=== PATIENT | male | born 1945 | race Caucasian/White ===

== ENCOUNTER 2018-11-10 19:38 | Inpatient (IN) | payer MEDICARE ==
[2018-11-10] MEDS ORDERED: morphine 2 MG INJ IV (22:00)
[2018-11-10] MEDS ORDERED: CYCLOBENZAPRINE 10 MG TAB PO (22:00)
[2018-11-10] MEDS ORDERED: ONDANSETRON 4 MG INJ IV (22:00)
[2018-11-10] MEDS ORDERED: GLUCOSE GEL 15 GRAM TUBE BUCCAL (22:00)
[2018-11-10] MEDS ORDERED: SENNA TAB PO (22:00)
[2018-11-10] MEDS ORDERED: GLUCOSE GEL 15 GRAM TUBE PO ×2 (22:00)
[2018-11-10] MEDS ORDERED: DEXTROSE 50% 50 ML SYRINGE IV ×2 (22:00)
[2018-11-10] MEDS ORDERED: POLYETHYLENE GLYCOL 17 GM PACKET PO (22:00)
[2018-11-10] MEDS ORDERED: MAGNESIUM OXIDE 400 MG TAB PO (22:00)
[2018-11-10] MEDS ORDERED: GLUCAGON 1 MG INJ IM (22:00)
[2018-11-10] MEDS ORDERED: DOCUSATE SODIUM 100 MG CAP PO (22:00)
[2018-11-10 22:26] LABS: ADD UMIC YES; UR ASCORBIC ACID NEGATIVE (NEGATIVE); UR BILIRUBIN (Dip) NEGATIVE (NEGATIVE); UR BLOOD (Dip) NEGATIVE (NEGATIVE); UR CLARITY CLEAR (CLEAR); UR COLOR YELLOW (YELLOW); UR GLUCOSE (Dip) 2+ mg/dL (NEGATIVE); UR KETONES (Dip) NEGATIVE (NEGATIVE); UR LEUKOCYTE ESTERASE (Dip) NEGATIVE Leu/ul (NEGATIVE); UR NITRITE (Dip) NEGATIVE (NEGATIVE); UR RBC 0 /HPF (0-5); UR SPECIFIC GRAVITY (Dip) 1.015 (1.003-1.030); UR TOTAL PROTEIN (Dip) 2+ mg/dl (NEGATIVE); UR UROBILINOGEN (Dip) NEGATIVE (NEGATIVE); UR WBC 0 /HPF (0-5)
[2018-11-10] MEDS: DOCUSATE SODIUM 100 MG CAP PO (22:52)
[2018-11-10] MEDS: PREGABALIN 75 MG CAP PO (22:52)
[2018-11-10] MEDS: SENNA TAB PO (22:52)
[2018-11-10] MEDS: TAMSULOSIN (SR) 0.4 MG CAP PO (22:53)
[2018-11-10] MEDS: oxyCODONE (CR) 15 MG TAB [oxyCONTIN] PO (22:53)
[2018-11-10] MEDS: CYCLOBENZAPRINE 10 MG TAB PO (22:55)
[2018-11-10] MEDS: METOPROLOL 25 MG TAB PO (22:56)
[2018-11-10] MEDS: AMLODIPINE 5 MG TAB PO (22:56)
[2018-11-10] MEDS: HEPARIN 5,000 UNIT/1 ML VIAL SC (23:03)
[2018-11-10] MEDS: Insulin NOVOLOG SS MILD Algorithm (SS with meals and bedtime) SC (23:04)
[2018-11-10] MEDS: INSULIN GLARGINE [LANTus] (100 UNITS/ML) SYG SC (23:04)
[2018-11-11] MEDS: ACCUCHECK AT 2AM (Patients on SS coverage) XX (02:00)
[2018-11-11] MEDS: PANTOPRAZOLE (EC) 40 MG TAB PO (06:24)
[2018-11-11 06:43] LABS: ADD MAN DIFF? NO
[2018-11-11 06:47] LABS: WHITE BLOOD COUNT 7.8 10^3/ul (4.8-10.8)
[2018-11-11 06:47] LABS: BASOPHILS % 0.5 % (0.0-2.0); EOSINOPHILS # 0.6 10^3/ul (0.0-0.5); EOSINOPHILS % 7.2 % (0.0-7.0); HEMATOCRIT 31.4 % (42.0-52.0); HEMOGLOBIN 10.4 g/dl (14.0-18.0); LYMPHOCYTES # 1.9 10^3/ul (0.8-2.9); LYMPHOCYTES % 24.6 % (15.0-51.0); MEAN CORPUSCULAR HEMOGLOBIN 30.1 pg (29.0-33.0); MEAN CORPUSCULAR HGB CONC 33.1 g/dl (32.0-37.0); MEAN PLATELET VOLUME 10.9 fl (7.4-10.4); MONOCYTE # 0.8 10^3/ul (0.3-0.9); MONOCYTES % 10.1 % (0.0-11.0); NEUTROPHIL # 4.5 10^3/ul (1.6-7.5); NEUTROPHILS % 57.3 % (39.0-77.0); PLATELET COUNT 160 10^3/UL (140-415); RED BLOOD COUNT 3.45 10^6/ul (4.70-6.10); RED CELL DISTRIBUTION WIDTH 12.5 % (11.5-14.5)
[2018-11-11 07:14] LABS: ALANINE AMINOTRANSFERASE 14 IU/L (13-69); ALBUMIN 3.1 g/dl (3.3-4.9); ALBUMIN/GLOBULIN RATIO 1.14; ALKALINE PHOSPHATASE 79 IU/L (42-121); ANION GAP 6 (5-13); ASPARTATE AMINO TRANSFERASE 15 IU/L (15-46); BILIRUBIN,INDIRECT 0.3 mg/dl (0-1.1); BILIRUBIN,TOTAL 0.3 mg/dl (0.2-1.3); BLOOD UREA NITROGEN 40 mg/dl (7-20); CALCIUM 8.5 mg/dl (8.4-10.2); CARBON DIOXIDE 27 mmol/L (21-31); CHLORIDE 104 mmol/L (97-110); CREATININE 2.83 mg/dl (0.61-1.24); GLUCOSE 205 mg/dl (70-220); POTASSIUM 3.6 mmol/L (3.5-5.1); SODIUM 137 mmol/L (135-144); TOTAL PROTEIN 5.8 g/dl (6.1-8.1)
[2018-11-11] MEDS: oxyCODONE (CR) 15 MG TAB [oxyCONTIN] PO ×2 (08:25→20:37)
[2018-11-11] MEDS: Insulin NOVOLOG SS MILD Algorithm (SS with meals and bedtime) SC ×4 (08:30→20:32)
[2018-11-11] MEDS: CLOPIDOGREL 75 MG TAB PO (08:59)
[2018-11-11] MEDS: DOCUSATE SODIUM 100 MG CAP PO ×2 (08:59→20:37)
[2018-11-11] MEDS: DULOXETINE 30 MG CAP DR PO (08:59)
[2018-11-11] MEDS: PREGABALIN 75 MG CAP PO ×2 (08:59→20:37)
[2018-11-11] MEDS: FINASTERIDE 5 MG TAB PO (08:59)
[2018-11-11] MEDS: AMLODIPINE 5 MG TAB PO ×2 (08:59→20:55)
[2018-11-11] MEDS: ASPIRIN (EC) 81 MG TAB PO (09:00)
[2018-11-11] MEDS: TAMSULOSIN (SR) 0.4 MG CAP PO ×2 (09:00→20:37)
[2018-11-11] MEDS: METOPROLOL 25 MG TAB PO ×2 (09:00→20:55)
[2018-11-11] MEDS: ISOSORBIDE MONONITRATE(SR)30 MG TAB PO (09:00)
[2018-11-11] MEDS: EZETIMIBE 10 MG TAB PO (09:00)
[2018-11-11] MEDS: HEPARIN 5,000 UNIT/1 ML VIAL SC ×2 (09:06→20:33)
[2018-11-11] MEDS: CYCLOBENZAPRINE 10 MG TAB PO (10:29)
[2018-11-11] MEDS: BACLOFEN 10 MG TAB PO (11:47)
[2018-11-11] MEDS: POLYETHYLENE GLYCOL 17 GM PACKET PO (11:47)
[2018-11-11] MEDS: INSULIN GLARGINE [LANTus] (100 UNITS/ML) SYG SC (20:32)
[2018-11-11] MEDS: SENNA TAB PO (20:38)
[2018-11-12] MEDS: ACCUCHECK AT 2AM (Patients on SS coverage) XX (02:11)
[2018-11-12] MEDS: PANTOPRAZOLE (EC) 40 MG TAB PO (06:56)
[2018-11-12 07:33] LABS: ANION GAP 6 (5-13); BLOOD UREA NITROGEN 43 mg/dl (7-20); CALCIUM 8.7 mg/dl (8.4-10.2); CARBON DIOXIDE 28 mmol/L (21-31); CHLORIDE 105 mmol/L (97-110); CREATININE 2.57 mg/dl (0.61-1.24); GLUCOSE 71 mg/dl (70-220); MAGNESIUM 2.3 mg/dl (1.7-2.5); PHOSPHORUS 4.2 mg/dl (2.5-4.9); POTASSIUM 3.8 mmol/L (3.5-5.1); SODIUM 139 mmol/L (135-144)
[2018-11-12] MEDS: CARISOPRODOL 350 MG TAB PO (07:34)
[2018-11-12] MEDS: Insulin NOVOLOG SS MILD Algorithm (SS with meals and bedtime) SC ×4 (07:49→20:53)
[2018-11-12] MEDS: POLYETHYLENE GLYCOL 17 GM PACKET PO (08:55)
[2018-11-12] MEDS: DOCUSATE SODIUM 100 MG CAP PO ×2 (08:56→20:58)
[2018-11-12] MEDS: ISOSORBIDE MONONITRATE(SR)30 MG TAB PO (08:56)
[2018-11-12] MEDS: DULOXETINE 30 MG CAP DR PO (08:57)
[2018-11-12] MEDS: CLOPIDOGREL 75 MG TAB PO (08:57)
[2018-11-12] MEDS: PREGABALIN 75 MG CAP PO ×2 (08:57→20:58)
[2018-11-12] MEDS: ASPIRIN (EC) 81 MG TAB PO (08:57)
[2018-11-12] MEDS: METOPROLOL 25 MG TAB PO ×2 (08:57→20:59)
[2018-11-12] MEDS: FINASTERIDE 5 MG TAB PO (08:57)
[2018-11-12] MEDS: TAMSULOSIN (SR) 0.4 MG CAP PO ×2 (08:57→20:59)
[2018-11-12] MEDS: AMLODIPINE 5 MG TAB PO ×2 (08:57→21:00)
[2018-11-12] MEDS: EZETIMIBE 10 MG TAB PO (08:57)
[2018-11-12] MEDS: HEPARIN 5,000 UNIT/1 ML VIAL SC ×2 (09:10→20:53)
[2018-11-12] MEDS: oxyCODONE (CR) 15 MG TAB [oxyCONTIN] PO ×2 (12:18→21:01)
[2018-11-12] MEDS: MUPIROCIN 2% 22 GM OINT TOP ×2 (12:19→21:04)
[2018-11-12 12:51] LABS: ADD UMIC YES; UR ASCORBIC ACID NEGATIVE (NEGATIVE); UR BILIRUBIN (Dip) NEGATIVE (NEGATIVE); UR BLOOD (Dip) NEGATIVE (NEGATIVE); UR CLARITY CLEAR (CLEAR); UR COLOR YELLOW (YELLOW); UR GLUCOSE (Dip) 2+ mg/dL (NEGATIVE); UR KETONES (Dip) NEGATIVE (NEGATIVE); UR LEUKOCYTE ESTERASE (Dip) NEGATIVE Leu/ul (NEGATIVE); UR NITRITE (Dip) NEGATIVE (NEGATIVE); UR RBC 0 /HPF (0-5); UR SPECIFIC GRAVITY (Dip) 1.012 (1.003-1.030); UR TOTAL PROTEIN (Dip) 1+ mg/dl (NEGATIVE); UR UROBILINOGEN (Dip) NEGATIVE (NEGATIVE); UR WBC 0 /HPF (0-5)
[2018-11-12] MEDS ORDERED: PENDING SANTYL ORDER FOR WOUND CARE XX (13:30)
[2018-11-12] MEDS: INSULIN GLARGINE [LANTus] (100 UNITS/ML) SYG SC (20:52)
[2018-11-12] MEDS: SENNA TAB PO (20:58)
[2018-11-13] MEDS: ACCUCHECK AT 2AM (Patients on SS coverage) XX (02:23)
[2018-11-13] MEDS: oxyCODONE 15 MG TAB PO (05:40)
[2018-11-13] MEDS: PANTOPRAZOLE (EC) 40 MG TAB PO (06:47)
[2018-11-13] MEDS: Insulin NOVOLOG SS MILD Algorithm (SS with meals and bedtime) SC ×4 (07:05→20:56)
[2018-11-13] MEDS: HEPARIN 5,000 UNIT/1 ML VIAL SC ×2 (08:40→20:54)
[2018-11-13] MEDS: PREGABALIN 75 MG CAP PO ×2 (08:42→20:43)
[2018-11-13] MEDS: EZETIMIBE 10 MG TAB PO (08:42)
[2018-11-13] MEDS: METOPROLOL 25 MG TAB PO ×2 (08:43→20:44)
[2018-11-13] MEDS: CLOPIDOGREL 75 MG TAB PO (08:44)
[2018-11-13] MEDS: ISOSORBIDE MONONITRATE(SR)30 MG TAB PO (08:49)
[2018-11-13] MEDS: oxyCODONE (CR) 15 MG TAB [oxyCONTIN] PO ×2 (08:49→20:43)
[2018-11-13] MEDS: FINASTERIDE 5 MG TAB PO (08:50)
[2018-11-13] MEDS: ASPIRIN (EC) 81 MG TAB PO (08:50)
[2018-11-13] MEDS: DULOXETINE 30 MG CAP DR PO (08:50)
[2018-11-13] MEDS: DOCUSATE SODIUM 100 MG CAP PO ×2 (08:50→20:43)
[2018-11-13] MEDS: TAMSULOSIN (SR) 0.4 MG CAP PO ×2 (08:50→20:43)
[2018-11-13] MEDS: POLYETHYLENE GLYCOL 17 GM PACKET PO (08:51)
[2018-11-13] MEDS: MUPIROCIN 2% 22 GM OINT TOP ×2 (08:51→21:00)
[2018-11-13] MEDS: AMLODIPINE 5 MG TAB PO ×2 (08:51→20:44)
[2018-11-13] MEDS: MAGNESIUM HYDROXIDE 30ML CUP PO (12:03)
[2018-11-13] MEDS: SENNA TAB PO (20:43)
[2018-11-13] MEDS: INSULIN GLARGINE [LANTus] (100 UNITS/ML) SYG SC (20:55)
[2018-11-13] MEDS: CARISOPRODOL 350 MG TAB PO (22:32)
[2018-11-13] MEDS: traZODone 50 MG TAB PO (22:33)
[2018-11-14] MEDS: BACLOFEN 10 MG TAB PO (00:33)
[2018-11-14] MEDS: ACCUCHECK AT 2AM (Patients on SS coverage) XX (02:12)
[2018-11-14 06:25] LABS: ADD MAN DIFF? NO
[2018-11-14 06:31] LABS: WHITE BLOOD COUNT 8.7 10^3/ul (4.8-10.8)
[2018-11-14 06:31] LABS: BASOPHILS % 0.3 % (0.0-2.0); EOSINOPHILS # 0.7 10^3/ul (0.0-0.5); EOSINOPHILS % 7.8 % (0.0-7.0); HEMATOCRIT 31.9 % (42.0-52.0); HEMOGLOBIN 10.4 g/dl (14.0-18.0); LYMPHOCYTES # 2.6 10^3/ul (0.8-2.9); LYMPHOCYTES % 29.4 % (15.0-51.0); MEAN CORPUSCULAR HEMOGLOBIN 29.6 pg (29.0-33.0); MEAN CORPUSCULAR HGB CONC 32.6 g/dl (32.0-37.0); MEAN CORPUSCULAR VOLUME 90.9 fl (82.0-101.0); MEAN PLATELET VOLUME 10.1 fl (7.4-10.4); MONOCYTE # 0.9 10^3/ul (0.3-0.9); MONOCYTES % 10.7 % (0.0-11.0); NEUTROPHIL # 4.5 10^3/ul (1.6-7.5); NEUTROPHILS % 51.6 % (39.0-77.0); PLATELET COUNT 194 10^3/UL (140-415); RED BLOOD COUNT 3.51 10^6/ul (4.70-6.10)
[2018-11-14] MEDS: PANTOPRAZOLE (EC) 40 MG TAB PO (06:36)
[2018-11-14] MEDS: Insulin NOVOLOG SS MILD Algorithm (SS with meals and bedtime) SC ×4 (07:05→20:30)
[2018-11-14 07:20] LABS: ANION GAP 6 (5-13); BLOOD UREA NITROGEN 38 mg/dl (7-20); CALCIUM 8.9 mg/dl (8.4-10.2); CARBON DIOXIDE 29 mmol/L (21-31); CHLORIDE 104 mmol/L (97-110); CREATININE 2.24 mg/dl (0.61-1.24); GLUCOSE 110 mg/dl (70-220); MAGNESIUM 2.4 mg/dl (1.7-2.5); PHOSPHORUS 3.7 mg/dl (2.5-4.9); POTASSIUM 4.3 mmol/L (3.5-5.1); SODIUM 139 mmol/L (135-144)
[2018-11-14] MEDS: METOPROLOL 25 MG TAB PO ×2 (09:00→20:25)
[2018-11-14] MEDS: MUPIROCIN 2% 22 GM OINT TOP ×2 (09:10→20:30)
[2018-11-14] MEDS: ASPIRIN (EC) 81 MG TAB PO (09:10)
[2018-11-14] MEDS: DULOXETINE 30 MG CAP DR PO (09:10)
[2018-11-14] MEDS: DOCUSATE SODIUM 100 MG CAP PO ×2 (09:10→20:22)
[2018-11-14] MEDS: ISOSORBIDE MONONITRATE(SR)30 MG TAB PO (09:11)
[2018-11-14] MEDS: POLYETHYLENE GLYCOL 17 GM PACKET PO (09:11)
[2018-11-14] MEDS: AMLODIPINE 5 MG TAB PO ×2 (09:11→20:25)
[2018-11-14] MEDS: oxyCODONE (CR) 15 MG TAB [oxyCONTIN] PO ×2 (09:11→20:21)
[2018-11-14] MEDS: CLOPIDOGREL 75 MG TAB PO (09:12)
[2018-11-14] MEDS: FINASTERIDE 5 MG TAB PO (09:12)
[2018-11-14] MEDS: EZETIMIBE 10 MG TAB PO (09:12)
[2018-11-14] MEDS: PREGABALIN 75 MG CAP PO ×2 (09:12→20:21)
[2018-11-14] MEDS: HEPARIN 5,000 UNIT/1 ML VIAL SC ×2 (09:20→20:29)
[2018-11-14] MEDS: morphine 2 MG INJ IV (11:08)
[2018-11-14] MEDS: BISACODYL 10 MG SUPP PR (18:41)
[2018-11-14] MEDS: SENNA TAB PO (20:21)
[2018-11-14] MEDS: TAMSULOSIN (SR) 0.4 MG CAP PO (20:22)
[2018-11-14] MEDS: INSULIN GLARGINE [LANTus] (100 UNITS/ML) SYG SC (20:29)
[2018-11-15] MEDS: ACCUCHECK AT 2AM (Patients on SS coverage) XX (02:35)
[2018-11-15] MEDS: PANTOPRAZOLE (EC) 40 MG TAB PO (06:31)
[2018-11-15] MEDS: TAMSULOSIN (SR) 0.4 MG CAP PO ×2 (06:31→20:23)
[2018-11-15] MEDS: Insulin NOVOLOG SS MILD Algorithm (SS with meals and bedtime) SC ×4 (07:53→20:52)
[2018-11-15] MEDS: MUPIROCIN 2% 22 GM OINT TOP ×2 (08:26→20:28)
[2018-11-15] MEDS: POLYETHYLENE GLYCOL 17 GM PACKET PO (08:27)
[2018-11-15] MEDS: PREGABALIN 75 MG CAP PO (08:28)
[2018-11-15] MEDS: oxyCODONE (CR) 15 MG TAB [oxyCONTIN] PO ×2 (08:28→20:19)
[2018-11-15] MEDS: AMLODIPINE 5 MG TAB PO ×2 (08:28→20:21)
[2018-11-15] MEDS: DOCUSATE SODIUM 100 MG CAP PO ×2 (08:28→20:19)
[2018-11-15] MEDS: FINASTERIDE 5 MG TAB PO (08:29)
[2018-11-15] MEDS: ISOSORBIDE MONONITRATE(SR)30 MG TAB PO (08:29)
[2018-11-15] MEDS: DULOXETINE 30 MG CAP DR PO (08:29)
[2018-11-15] MEDS: CLOPIDOGREL 75 MG TAB PO (08:29)
[2018-11-15] MEDS: ASPIRIN (EC) 81 MG TAB PO (08:30)
[2018-11-15] MEDS: EZETIMIBE 10 MG TAB PO (08:30)
[2018-11-15] MEDS: HEPARIN 5,000 UNIT/1 ML VIAL SC ×2 (08:32→20:52)
[2018-11-15] MEDS: METOPROLOL 25 MG TAB PO ×2 (08:37→20:21)
[2018-11-15 13:01] LABS: ADD MAN DIFF? NO
[2018-11-15 13:02] LABS: BASOPHILS % 0.5 % (0.0-2.0); EOSINOPHILS # 0.7 10^3/ul (0.0-0.5); EOSINOPHILS % 8.3 % (0.0-7.0); HEMATOCRIT 31.8 % (42.0-52.0); HEMOGLOBIN 10.4 g/dl (14.0-18.0); LYMPHOCYTES # 2.3 10^3/ul (0.8-2.9); LYMPHOCYTES % 27.6 % (15.0-51.0); MEAN CORPUSCULAR HEMOGLOBIN 30.4 pg (29.0-33.0); MEAN CORPUSCULAR HGB CONC 32.7 g/dl (32.0-37.0); MEAN PLATELET VOLUME 10.1 fl (7.4-10.4); MONOCYTE # 0.8 10^3/ul (0.3-0.9); MONOCYTES % 9.9 % (0.0-11.0); NEUTROPHIL # 4.4 10^3/ul (1.6-7.5); NEUTROPHILS % 53.5 % (39.0-77.0); PLATELET COUNT 190 10^3/UL (140-415); RED BLOOD COUNT 3.42 10^6/ul (4.70-6.10); RED CELL DISTRIBUTION WIDTH 12.8 % (11.5-14.5)
[2018-11-15 13:02] LABS: WHITE BLOOD COUNT 8.3 10^3/ul (4.8-10.8)
[2018-11-15 13:18] LABS: ANION GAP 10 (5-13); BLOOD UREA NITROGEN 39 mg/dl (7-20); CALCIUM 8.5 mg/dl (8.4-10.2); CARBON DIOXIDE 29 mmol/L (21-31); CHLORIDE 101 mmol/L (97-110); CREATININE 2.38 mg/dl (0.61-1.24); GLUCOSE 252 mg/dl (70-220); POTASSIUM 4.7 mmol/L (3.5-5.1); SODIUM 140 mmol/L (135-144)
[2018-11-15] MEDS: DICYCLOMINE 10 MG CAP PO (16:38)
[2018-11-15] MEDS: SENNA TAB PO (20:19)
[2018-11-15] MEDS: PREGABALIN 50 MG CAP PO (20:21)
[2018-11-15] MEDS: INSULIN GLARGINE [LANTus] (100 UNITS/ML) SYG SC (20:53)
[2018-11-16] MEDS: ACCUCHECK AT 2AM (Patients on SS coverage) XX (02:00)
[2018-11-16 06:41] LABS: ADD MAN DIFF? NO
[2018-11-16 06:48] LABS: BASOPHILS % 0.5 % (0.0-2.0); EOSINOPHILS # 0.7 10^3/ul (0.0-0.5); EOSINOPHILS % 8.2 % (0.0-7.0); HEMOGLOBIN 10.5 g/dl (14.0-18.0); LYMPHOCYTES # 2.7 10^3/ul (0.8-2.9); LYMPHOCYTES % 30.5 % (15.0-51.0); MEAN CORPUSCULAR HEMOGLOBIN 29.8 pg (29.0-33.0); MEAN CORPUSCULAR HGB CONC 32.8 g/dl (32.0-37.0); MEAN CORPUSCULAR VOLUME 90.9 fl (82.0-101.0); MEAN PLATELET VOLUME 10.1 fl (7.4-10.4); MONOCYTES % 10.8 % (0.0-11.0); NEUTROPHIL # 4.4 10^3/ul (1.6-7.5); NEUTROPHILS % 49.7 % (39.0-77.0); PLATELET COUNT 211 10^3/UL (140-415); RED BLOOD COUNT 3.52 10^6/ul (4.70-6.10); RED CELL DISTRIBUTION WIDTH 12.8 % (11.5-14.5)
[2018-11-16 06:48] LABS: WHITE BLOOD COUNT 8.8 10^3/ul (4.8-10.8)
[2018-11-16] MEDS: TAMSULOSIN (SR) 0.4 MG CAP PO ×2 (06:58→21:09)
[2018-11-16] MEDS: PANTOPRAZOLE (EC) 40 MG TAB PO (06:58)
[2018-11-16] MEDS: Insulin NOVOLOG SS MILD Algorithm (SS with meals and bedtime) SC ×4 (07:05→21:00)
[2018-11-16 07:19] LABS: ANION GAP 8 (5-13); BLOOD UREA NITROGEN 37 mg/dl (7-20); CALCIUM 8.9 mg/dl (8.4-10.2); CARBON DIOXIDE 31 mmol/L (21-31); CHLORIDE 103 mmol/L (97-110); CREATININE 2.28 mg/dl (0.61-1.24); GLUCOSE 88 mg/dl (70-220); MAGNESIUM 2.3 mg/dl (1.7-2.5); PHOSPHORUS 3.8 mg/dl (2.5-4.9); SODIUM 142 mmol/L (135-144)
[2018-11-16] MEDS: EZETIMIBE 10 MG TAB PO (08:59)
[2018-11-16] MEDS: oxyCODONE (CR) 15 MG TAB [oxyCONTIN] PO ×2 (09:00→21:10)
[2018-11-16] MEDS: DOCUSATE SODIUM 100 MG CAP PO ×2 (09:00→21:10)
[2018-11-16] MEDS: AMLODIPINE 5 MG TAB PO ×2 (09:00→21:11)
[2018-11-16] MEDS: CLOPIDOGREL 75 MG TAB PO (09:01)
[2018-11-16] MEDS: FINASTERIDE 5 MG TAB PO (09:01)
[2018-11-16] MEDS: PREGABALIN 50 MG CAP PO ×2 (09:01→21:09)
[2018-11-16] MEDS: DULOXETINE 30 MG CAP DR PO (09:01)
[2018-11-16] MEDS: ISOSORBIDE MONONITRATE(SR)30 MG TAB PO (09:01)
[2018-11-16] MEDS: HEPARIN 5,000 UNIT/1 ML VIAL SC ×2 (09:02→21:12)
[2018-11-16] MEDS: ASPIRIN (EC) 81 MG TAB PO (09:02)
[2018-11-16] MEDS: POLYETHYLENE GLYCOL 17 GM PACKET PO (09:02)
[2018-11-16] MEDS: METOPROLOL 25 MG TAB PO ×2 (09:02→21:11)
[2018-11-16] MEDS: MUPIROCIN 2% 22 GM OINT TOP ×2 (09:03→21:09)
[2018-11-16] MEDS: DICYCLOMINE 10 MG CAP PO (17:18)
[2018-11-16] MEDS: SENNA TAB PO (21:10)
[2018-11-16] MEDS: INSULIN GLARGINE [LANTus] (100 UNITS/ML) SYG SC (21:14)
[2018-11-17] MEDS: BACLOFEN 10 MG TAB PO (01:58)
[2018-11-17] MEDS: ACCUCHECK AT 2AM (Patients on SS coverage) XX (02:00)
[2018-11-17] MEDS: TAMSULOSIN (SR) 0.4 MG CAP PO ×2 (06:07→21:51)
[2018-11-17] MEDS: PANTOPRAZOLE (EC) 40 MG TAB PO (06:07)
[2018-11-17] MEDS: Insulin NOVOLOG SS MILD Algorithm (SS with meals and bedtime) SC ×4 (07:53→21:58)
[2018-11-17] MEDS: METOPROLOL 25 MG TAB PO ×2 (07:55→21:00)
[2018-11-17] MEDS: ASPIRIN (EC) 81 MG TAB PO (07:58)
[2018-11-17] MEDS: FINASTERIDE 5 MG TAB PO (07:58)
[2018-11-17] MEDS: ISOSORBIDE MONONITRATE(SR)30 MG TAB PO (07:58)
[2018-11-17] MEDS: DOCUSATE SODIUM 100 MG CAP PO ×2 (07:58→21:48)
[2018-11-17] MEDS: oxyCODONE (CR) 15 MG TAB [oxyCONTIN] PO ×2 (07:58→21:48)
[2018-11-17] MEDS: PREGABALIN 50 MG CAP PO ×2 (07:58→21:48)
[2018-11-17] MEDS: POLYETHYLENE GLYCOL 17 GM PACKET PO (07:59)
[2018-11-17] MEDS: EZETIMIBE 10 MG TAB PO (07:59)
[2018-11-17] MEDS: CLOPIDOGREL 75 MG TAB PO (07:59)
[2018-11-17] MEDS: AMLODIPINE 5 MG TAB PO ×2 (07:59→21:47)
[2018-11-17] MEDS: MUPIROCIN 2% 22 GM OINT TOP ×2 (08:00→22:00)
[2018-11-17] MEDS: HEPARIN 5,000 UNIT/1 ML VIAL SC ×2 (08:01→21:57)
[2018-11-17] MEDS: DULOXETINE 30 MG CAP DR PO (09:47)
[2018-11-17] MEDS: morphine 2 MG INJ IV (19:29)
[2018-11-17] MEDS: SENNA TAB PO (21:48)
[2018-11-17] MEDS: INSULIN GLARGINE [LANTus] (100 UNITS/ML) SYG SC (21:58)
[2018-11-18] MEDS: ACCUCHECK AT 2AM (Patients on SS coverage) XX (02:11)
[2018-11-18] MEDS: morphine 2 MG INJ IV ×2 (02:20→06:34)
[2018-11-18] MEDS: TAMSULOSIN (SR) 0.4 MG CAP PO ×2 (06:33→20:31)
[2018-11-18] MEDS: PANTOPRAZOLE (EC) 40 MG TAB PO (06:34)
[2018-11-18] MEDS: Insulin NOVOLOG SS MILD Algorithm (SS with meals and bedtime) SC ×4 (07:05→20:37)
[2018-11-18] MEDS: oxyCODONE (CR) 15 MG TAB [oxyCONTIN] PO ×2 (08:46→20:32)
[2018-11-18] MEDS: PREGABALIN 50 MG CAP PO ×2 (08:47→20:31)
[2018-11-18] MEDS: CLOPIDOGREL 75 MG TAB PO (10:29)
[2018-11-18] MEDS: DOCUSATE SODIUM 100 MG CAP PO ×2 (10:29→20:31)
[2018-11-18] MEDS: DULOXETINE 30 MG CAP DR PO (10:29)
[2018-11-18] MEDS: ASPIRIN (EC) 81 MG TAB PO (10:29)
[2018-11-18] MEDS: METOPROLOL 25 MG TAB PO ×2 (10:30→20:33)
[2018-11-18] MEDS: POLYETHYLENE GLYCOL 17 GM PACKET PO (10:34)
[2018-11-18] MEDS: AMLODIPINE 5 MG TAB PO ×2 (10:34→20:33)
[2018-11-18] MEDS: FINASTERIDE 5 MG TAB PO (10:37)
[2018-11-18] MEDS: MUPIROCIN 2% 22 GM OINT TOP ×2 (10:39→20:38)
[2018-11-18] MEDS: HEPARIN 5,000 UNIT/1 ML VIAL SC ×2 (10:49→20:36)
[2018-11-18] MEDS: morphine 10 MG INJ IV (12:41)
[2018-11-18] MEDS: EZETIMIBE 10 MG TAB PO (12:42)
[2018-11-18] MEDS: ISOSORBIDE MONONITRATE(SR)30 MG TAB PO (12:43)
[2018-11-18] MEDS: SENNA TAB PO (20:31)
[2018-11-18] MEDS: INSULIN GLARGINE [LANTus] (100 UNITS/ML) SYG SC (20:36)
[2018-11-18] MEDS: CARISOPRODOL 350 MG TAB PO (21:47)
[2018-11-18] MEDS: traZODone 50 MG TAB PO (21:47)
[2018-11-19] MEDS: BACLOFEN 10 MG TAB PO (00:08)
[2018-11-19] MEDS: morphine 10 MG INJ IV ×2 (00:09→01:30)
[2018-11-19] MEDS: ACCUCHECK AT 2AM (Patients on SS coverage) XX (02:32)
[2018-11-19] MEDS: morphine 2 MG INJ IV (04:47)
[2018-11-19] MEDS: PANTOPRAZOLE (EC) 40 MG TAB PO (06:36)
[2018-11-19] MEDS: TAMSULOSIN (SR) 0.4 MG CAP PO ×2 (06:36→21:00)
[2018-11-19] MEDS: Insulin NOVOLOG SS MILD Algorithm (SS with meals and bedtime) SC ×4 (07:05→20:28)
[2018-11-19 07:09] LABS: ADD MAN DIFF? NO
[2018-11-19 07:10] LABS: BASOPHIL # 0.1 10^3/ul (0.0-0.1); BASOPHILS % 0.6 % (0.0-2.0); EOSINOPHILS # 0.7 10^3/ul (0.0-0.5); EOSINOPHILS % 7.6 % (0.0-7.0); HEMOGLOBIN 11.1 g/dl (14.0-18.0); LYMPHOCYTES # 2.9 10^3/ul (0.8-2.9); LYMPHOCYTES % 32.8 % (15.0-51.0); MEAN CORPUSCULAR HEMOGLOBIN 29.6 pg (29.0-33.0); MEAN CORPUSCULAR HGB CONC 31.7 g/dl (32.0-37.0); MEAN CORPUSCULAR VOLUME 93.3 fl (82.0-101.0); MEAN PLATELET VOLUME 10.5 fl (7.4-10.4); MONOCYTE # 0.9 10^3/ul (0.3-0.9); NEUTROPHIL # 4.4 10^3/ul (1.6-7.5); NEUTROPHILS % 48.7 % (39.0-77.0); PLATELET COUNT 224 10^3/UL (140-415); RED BLOOD COUNT 3.75 10^6/ul (4.70-6.10); RED CELL DISTRIBUTION WIDTH 13.1 % (11.5-14.5)
[2018-11-19 07:10] LABS: WHITE BLOOD COUNT 8.9 10^3/ul (4.8-10.8)
[2018-11-19 08:05] LABS: ALANINE AMINOTRANSFERASE 10 IU/L (13-69); ALBUMIN 3.6 g/dl (3.3-4.9); ALBUMIN/GLOBULIN RATIO 1.12; ALKALINE PHOSPHATASE 86 IU/L (42-121); ANION GAP 8 (5-13); ASPARTATE AMINO TRANSFERASE 31 IU/L (15-46); BILIRUBIN,INDIRECT 0.3 mg/dl (0-1.1); BILIRUBIN,TOTAL 0.3 mg/dl (0.2-1.3); BLOOD UREA NITROGEN 47 mg/dl (7-20); CALCIUM 8.9 mg/dl (8.4-10.2); CARBON DIOXIDE 28 mmol/L (21-31); CHLORIDE 106 mmol/L (97-110); CREATININE 2.35 mg/dl (0.61-1.24); GLUCOSE 90 mg/dl (70-220); POTASSIUM 4.6 mmol/L (3.5-5.1); SODIUM 142 mmol/L (135-144); TOTAL PROTEIN 6.8 g/dl (6.1-8.1)
[2018-11-19 08:11] LABS: PHOSPHORUS 4.8 mg/dl (2.5-4.9)
[2018-11-19 08:11] LABS: MAGNESIUM 2.3 mg/dl (1.7-2.5)
[2018-11-19] MEDS: FINASTERIDE 5 MG TAB PO (08:35)
[2018-11-19] MEDS: PREGABALIN 50 MG CAP PO ×2 (08:35→20:25)
[2018-11-19] MEDS: CLOPIDOGREL 75 MG TAB PO (08:35)
[2018-11-19] MEDS: MUPIROCIN 2% 22 GM OINT TOP ×2 (08:35→21:00)
[2018-11-19] MEDS: EZETIMIBE 10 MG TAB PO (08:36)
[2018-11-19] MEDS: DOCUSATE SODIUM 100 MG CAP PO ×2 (08:36→20:25)
[2018-11-19] MEDS: ASPIRIN (EC) 81 MG TAB PO (08:36)
[2018-11-19] MEDS: DULOXETINE 30 MG CAP DR PO (08:37)
[2018-11-19] MEDS: oxyCODONE (CR) 15 MG TAB [oxyCONTIN] PO ×2 (08:37→20:24)
[2018-11-19] MEDS: POLYETHYLENE GLYCOL 17 GM PACKET PO (08:38)
[2018-11-19] MEDS: METOPROLOL 25 MG TAB PO ×2 (08:39→20:25)
[2018-11-19] MEDS: AMLODIPINE 5 MG TAB PO ×2 (08:39→20:24)
[2018-11-19] MEDS: ISOSORBIDE MONONITRATE(SR)30 MG TAB PO (08:39)
[2018-11-19] MEDS: HEPARIN 5,000 UNIT/1 ML VIAL SC ×2 (08:40→20:29)
[2018-11-19] MEDS: oxyCODONE 15 MG TAB PO (12:07)
[2018-11-19] MEDS: BISACODYL 10 MG SUPP PR (17:03)
[2018-11-19] MEDS: SENNA TAB PO (20:26)
[2018-11-19] MEDS: INSULIN GLARGINE [LANTus] (100 UNITS/ML) SYG SC (20:29)
[2018-11-20] MEDS: ACCUCHECK AT 2AM (Patients on SS coverage) XX (02:00)
[2018-11-20] MEDS: PANTOPRAZOLE (EC) 40 MG TAB PO (05:29)
[2018-11-20] MEDS: TAMSULOSIN (SR) 0.4 MG CAP PO ×2 (05:29→21:15)
[2018-11-20] MEDS: oxyCODONE 15 MG TAB PO (05:36)
[2018-11-20] MEDS: Insulin NOVOLOG SS MILD Algorithm (SS with meals and bedtime) SC ×4 (07:05→21:22)
[2018-11-20] MEDS: EZETIMIBE 10 MG TAB PO (09:50)
[2018-11-20] MEDS: POLYETHYLENE GLYCOL 17 GM PACKET PO (09:50)
[2018-11-20] MEDS: DOCUSATE SODIUM 100 MG CAP PO ×2 (09:50→21:15)
[2018-11-20] MEDS: CLOPIDOGREL 75 MG TAB PO (09:50)
[2018-11-20] MEDS: PREGABALIN 50 MG CAP PO ×2 (09:51→21:15)
[2018-11-20] MEDS: DULOXETINE 30 MG CAP DR PO (09:52)
[2018-11-20] MEDS: oxyCODONE (CR) 15 MG TAB [oxyCONTIN] PO ×2 (09:52→21:16)
[2018-11-20] MEDS: ASPIRIN (EC) 81 MG TAB PO (09:53)
[2018-11-20] MEDS: AMLODIPINE 5 MG TAB PO ×2 (09:53→21:16)
[2018-11-20] MEDS: METOPROLOL 25 MG TAB PO ×2 (09:53→21:17)
[2018-11-20] MEDS: ISOSORBIDE MONONITRATE(SR)30 MG TAB PO (09:53)
[2018-11-20] MEDS: FINASTERIDE 5 MG TAB PO (09:53)
[2018-11-20] MEDS: HEPARIN 5,000 UNIT/1 ML VIAL SC ×2 (10:04→21:20)
[2018-11-20] MEDS: CIPROFLOXACIN HCL OTIC DROP 0.25 ML LEFT EAR ×2 (15:32→21:22)
[2018-11-20] MEDS: CARISOPRODOL 350 MG TAB PO (17:21)
[2018-11-20] MEDS: SENNA TAB PO (21:15)
[2018-11-20] MEDS: INSULIN GLARGINE [LANTus] (100 UNITS/ML) SYG SC (21:21)
[2018-11-21] MEDS: traZODone 50 MG TAB PO (00:01)
[2018-11-21] MEDS: BACLOFEN 10 MG TAB PO (00:01)
[2018-11-21] MEDS: morphine 10 MG INJ IV ×2 (00:01→06:03)
[2018-11-21] MEDS: ACCUCHECK AT 2AM (Patients on SS coverage) XX (02:55)
[2018-11-21] MEDS: PANTOPRAZOLE (EC) 40 MG TAB PO (06:03)
[2018-11-21] MEDS: CARISOPRODOL 350 MG TAB PO (06:03)
[2018-11-21] MEDS: TAMSULOSIN (SR) 0.4 MG CAP PO (06:03)
[2018-11-21] MEDS: Insulin NOVOLOG SS MILD Algorithm (SS with meals and bedtime) SC (07:05)
[2018-11-21 07:19] LABS: ADD MAN DIFF? NO
[2018-11-21 07:24] LABS: WHITE BLOOD COUNT 9.6 10^3/ul (4.8-10.8)
[2018-11-21 07:24] LABS: BASOPHILS % 0.4 % (0.0-2.0); EOSINOPHILS # 0.7 10^3/ul (0.0-0.5); EOSINOPHILS % 6.9 % (0.0-7.0); HEMATOCRIT 33.8 % (42.0-52.0); HEMOGLOBIN 11.1 g/dl (14.0-18.0); LYMPHOCYTES # 3.3 10^3/ul (0.8-2.9); LYMPHOCYTES % 34.2 % (15.0-51.0); MEAN CORPUSCULAR HEMOGLOBIN 30.5 pg (29.0-33.0); MEAN CORPUSCULAR HGB CONC 32.8 g/dl (32.0-37.0); MEAN CORPUSCULAR VOLUME 92.9 fl (82.0-101.0); MEAN PLATELET VOLUME 10.4 fl (7.4-10.4); MONOCYTE # 0.9 10^3/ul (0.3-0.9); MONOCYTES % 9.6 % (0.0-11.0); NEUTROPHIL # 4.7 10^3/ul (1.6-7.5); NEUTROPHILS % 48.5 % (39.0-77.0); PLATELET COUNT 232 10^3/UL (140-415); RED BLOOD COUNT 3.64 10^6/ul (4.70-6.10); RED CELL DISTRIBUTION WIDTH 12.9 % (11.5-14.5)
[2018-11-21 07:46] LABS: ANION GAP 9 (5-13); BLOOD UREA NITROGEN 41 mg/dl (7-20); CALCIUM 9.2 mg/dl (8.4-10.2); CARBON DIOXIDE 30 mmol/L (21-31); CHLORIDE 105 mmol/L (97-110); CREATININE 2.53 mg/dl (0.61-1.24); GLUCOSE 76 mg/dl (70-220); MAGNESIUM 2.1 mg/dl (1.7-2.5); PHOSPHORUS 4.6 mg/dl (2.5-4.9); POTASSIUM 4.7 mmol/L (3.5-5.1); SODIUM 144 mmol/L (135-144)
[2018-11-21] MEDS: CIPROFLOXACIN HCL OTIC DROP 0.25 ML LEFT EAR (10:20)
[2018-11-21] MEDS: DOCUSATE SODIUM 100 MG CAP PO (10:20)
[2018-11-21] MEDS: AMLODIPINE 5 MG TAB PO (10:21)
[2018-11-21] MEDS: DULOXETINE 30 MG CAP DR PO (10:22)
[2018-11-21] MEDS: oxyCODONE (CR) 15 MG TAB [oxyCONTIN] PO (10:22)
[2018-11-21] MEDS: METOPROLOL 25 MG TAB PO (10:23)
[2018-11-21] MEDS: EZETIMIBE 10 MG TAB PO (10:23)
[2018-11-21] MEDS: ASPIRIN (EC) 81 MG TAB PO (10:23)
[2018-11-21] MEDS: ISOSORBIDE MONONITRATE(SR)30 MG TAB PO (10:24)
[2018-11-21] MEDS: CLOPIDOGREL 75 MG TAB PO (10:24)
[2018-11-21] MEDS: PREGABALIN 50 MG CAP PO (10:24)
[2018-11-21] MEDS: FINASTERIDE 5 MG TAB PO (10:24)
[2018-11-21] MEDS: HEPARIN 5,000 UNIT/1 ML VIAL SC (10:25)
[2018-11-21] MEDS: POLYETHYLENE GLYCOL 17 GM PACKET PO (10:26)
== END 2018-11-21 12:15 | disposition home health service (06) | DRG 560 ==
LOC: VRC 11-12 10:39
DX: S82.852D Displaced trimalleolar fracture of left lower leg, subsequent encounter for closed fracture with routine healing (principal); N17.9 Acute kidney failure, unspecified; E11.9 Type 2 diabetes mellitus without complications; E11.22 Type 2 diabetes mellitus with diabetic chronic kidney disease; I12.9 Hypertensive chronic kidney disease with stage 1 through stage 4 chronic kidney disease, or unspecified chronic kidney disease; N18.9 Chronic kidney disease, unspecified; Z95.5 Presence of coronary angioplasty implant and graft; E78.5 Hyperlipidemia, unspecified; Z86.73 Personal history of transient ischemic attack (TIA), and cerebral infarction without residual deficits; D63.8 Anemia in other chronic diseases classified elsewhere; N40.0 Benign prostatic hyperplasia without lower urinary tract symptoms; I73.9 Peripheral vascular disease, unspecified; Z79.02 Long term (current) use of antithrombotics/antiplatelets; G89.4 Chronic pain syndrome
CPT/HCPCS: 73610; 73630-LT; 74018; 80048; 80053; 81001; 82962; 83735; 84100; 85025; 87081; 87086; 97110; 97116; 97163; 97167; 97530; 97535; 97542